=== PATIENT | female | born 1970 | race Caucasian/White ===

== ENCOUNTER → 2023-02-16 | Outpatient (CLI) | payer OTHER, SELFPAY ==
--- NOTE | 2023-02-16 13:41 | CT_ITS ---
STUDY: CT CHEST, ABDOMEN T PELVIS WITH CONTRAST REASON FOR EXAM: Female, 52 years old. MASTOCYTOSIS; IV ONLY RADIATION DOSAGE (If Supplied By Facility): CTDIvol = ( 21.43 ) mGy, DLP = ( 2067.89 ) mGycm TECHNIQUE: Transaxial imaging was performed following intravenous administration of IV 100mL [id number]. Multiplanar coronal and sagittal images were reformatted. Individualized dose optimization techniques were used for this CT. COMPARISON: No relevant priors. FINDINGS: CHEST There is mild lower lung scarring or atelectasis. There is no demonstrated pleural abnormality. Normal heart and pericardium. Normal mediastinum. Normal hilar regions. Normal unenhanced pulmonary arteries. There is atherosclerotic calcification of the aortic arch. There are multi-level degenerative changes of the thoracic spine. ABDOMEN There is pneumobilia. No dominant mass in the liver. There are surgical clips in the gallbladder fossa consistent with a prior cholecystectomy. Normal spleen. Normal pancreas. Normal bilateral adrenal glands. There is 1.1 cm cyst of the right kidney. Normal left kidney. Normal visualized stomach. Normal small intestine. Normal colon. The appendix is visualized and appears normal. There is atherosclerotic calcification of the abdominal aorta, without a demonstrated aneurysm. Normal inferior vena cava. Normal retroperitoneum. Normal abdominal wall. There are diffuse degenerative changes of the visualized lumbar spine. PELVIS Normal urinary bladder. Normal visualized small intestine. Normal visualized colon. There is no pelvic fluid. There is no pelvic lymphadenopathy or mass lesion. There is absence of the uterus consistent with a prior hysterectomy. Normal visualized pelvic arteries. Normal abdominal wall. Normal osseous structures. CT/CT Chest, Abd, Pel w/Contrast IMPRESSION: No mass or obstruction. No stones or hydronephrosis. No focal infiltrate. No adenopathy. Electronically Signed: Clifford Jovel MD at 12:51 EDT ,
[2023-02-16 14:07] LABS: EGFR FINGERSTICK > 60.0000 mL/min (>60)
== END | disposition home or self-care (01) ==
LOC: CT 13:40
PROVIDERS: Referring Provider Internal Medicine Hematology & Oncology; Visit Provider Internal Medicine Hematology & Oncology
DX: D47.09 Other mast cell neoplasms of uncertain behavior (principal)
CPT/HCPCS: 71260; 74177; Q9967

== ENCOUNTER → 2023-02-21 | Outpatient (CLI) | payer OTHER, SELFPAY ==
--- NOTE | 2023-02-21 08:04 | NM_ITS ---
CLINICAL: 52-year-old female with history of mastocytosis. WHOLE BODY 99m Tc MDP RADIONUCLIDE BONE SCINTIGRAPHY COMPARISON: None available FINDINGS: Following the intravenous administration of 25.0 mCi of 99m Tc MDP, whole body bone images reveal: 1. Enhanced radiotracer concentration is defined in the acromioclavicular and sternoclavicular compartments of both shoulders, the knees bilaterally, the right-left ankles, the midfoot and forefoot bilaterally, the fifth lumbar vertebra posteriorly on the left and right, the visualized hands. 2. Subtle increased uptake is identified in the bilateral mid tibial diaphysis. 3. The remaining skeletal structures are scintigraphically unremarkable with normal-appearing renal images and urinary bladder activity identified. Increased uptake is noted in the left femoral neck and intertrochanteric aspect of the left proximal femur. NM/Bone Scan Whole Body IMPRESSION: 1. The increase in radiopharmaceutical concentration defined in the mid tibial diaphysis bilaterally and left proximal femur may be further investigated with plain film radiography if clinically indicated. 2. 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 3. There is no typical scintigraphic evidence of diffuse axial skeletal metastatic disease on the current examination. Electronically Signed: Tl Byers DO at 21:29 EDT ,
== END | disposition home or self-care (01) ==
LOC: NM 08:04
PROVIDERS: Referring Provider Internal Medicine Hematology & Oncology; Visit Provider Internal Medicine Hematology & Oncology
DX: D47.09 Other mast cell neoplasms of uncertain behavior (principal)
CPT/HCPCS: 78306; A9503